=== PATIENT | male | born 1970 | race Caucasian/White ===

== ENCOUNTER 2020-04-19 19:32 | Emergency (ER) | payer BC, SELFPAY ==
[2020-04-19 19:33] VITALS: BP 132/94; PULSE 72; PULSE 78; RESP 16; TEMP 36.5; O2SAT 97; BMI 33.5
--- NOTE | 2020-04-19 19:54 | ED.VIS.GEN ---
History of Present Illness Chief Complaint: General Illness Informant: Patient Narrative: 49-year-old male presenting with sensation of irritation in his throat for the last week. It is been on and off. He has been able to eat and drink normally. He is tolerating his own secretions. He is able to breathe without difficulty. He states he has not had any swollen lymph nodes. No fevers, chills. No history of foreign body impaction in esophagus. States he has a history of GERD but does not take any medication for it. Past Medical History - Allergies and Home Meds Allergies/Adverse Reactions: Allergies No Known Allergies Allergy (Verified 04/19/20 19:37) Primary Care Physician: Zaki Dueñas MD [Primary Care Provider] - Prior records reviewed: Yes Past Medical History: - - GERD Lives: Spouse/ Significant Other, With Family Smoking Status: Never smoker Alcohol: None Drugs: None Review of Systems General: Denies: Chills, Fever, Sweats Eyes: Denies: Visual changes - bilaterally, Diplopia ENT: Reports: - - Throat irritation. Denies: Rhinorrhea, Sore throat Cardiovascular: Denies: Chest pain, Palpitations Respiratory: Denies: Dyspnea, Cough Gastrointestinal: Denies: Abdominal pain, Nausea Genitourinary: Denies: Dysuria, Hematuria Musculoskeletal: Denies: Myalgias, Arthralgias Skin: Denies: Rash, Abscess Neurological: Denies: Headache, Weakness Psych: Denies: Depression, Anxiety Physical Exam Vital Signs/Narrative: Vital Signs Temp Pulse Resp BP Pulse Ox 04/19/20 19:33 97.7 F L 78 16 132/94 H 97 General: Well nourished, No Acute Distress Head: Normocephalic, Atraumatic Eyes: Perrl ENT: Moist mucous membranes, No rhinorrhea, - - Oropharynx is patent without stridor. No erythema. Tonsils appear normal. Neck: Supple, Nontender, No lymphadenopathy, - - No masses palpated Cardiovascular: Regular rate, Regular rhythm Skin: Normal color, No rash, Cyanosis Neurological: Alert, Oriented x3 Psychological: Normal affect Diagnostic/Tx/Re-eval - Medical Decision Making Patient presents with irritation to the throat which is intermittent over the last week. He is able to eat and drink normally. On exam he has no masses palpated. There is no lymphadenopathy, stridor. Patient is well-appearing. Vital signs are stable and he is afebrile. I do not believe the patient needs lab work or imaging. With his history of GERD I will place him on pepcid and have him follow up with his pcp. Impression: 1. Globus hystericus ED Disposition - Plan for ED Patient: Referrals: Zaki Dueñas MD [Primary Care Provider] -
== END 2020-04-19 21:26 | disposition home or self-care (01) ==
LOC: ED 20:26
PROVIDERS: Emergency Provider Student in an Organized Health Care Education/Training Program; PCP Physician Assistant
DX: F45.8 Other somatoform disorders (principal)
CPT/HCPCS: 99282